=== PATIENT | female | born 1960 | race African-American/Black ===

== ENCOUNTER 2023-03-23 14:24 | Emergency (ER) | payer MEDICAID, OTHER ==
[~2023-03-23] VITALS: Ht 167.6 cm; Wt 84.1 kg
[~2023-03-23 14:24] MED LIST: AMLO-258 PO; LOSA-382 PO
[2023-03-23] MEDS ORDERED: DORZ10DR10 OU (14:41)
[2023-03-23] MEDS ORDERED: ATOR-2 PO (14:41)
[2023-03-23] MEDS ORDERED: ACETAMINOPHEN 500 MG TABLET PO ONE (15:00)
[2023-03-23] MEDS ORDERED: DICLOFENAC SODIUM 1% 100 GM GEL [4GM] TP ONE (16:45)
[2023-03-23] MEDS ORDERED: ACET-3385 PO (17:32)
[2023-03-23 17:34] VITALS: BP 159/84
== END 2023-03-23 17:34 | disposition home or self-care (01) ==
LOC: EMS 14:28
DX: S80.02XA Contusion of left knee, initial encounter (principal); E78.00 Pure hypercholesterolemia, unspecified; I10 Essential (primary) hypertension; Z88.5 Allergy status to narcotic agent; W01.0XXA Fall on same level from slipping, tripping and stumbling without subsequent striking against object, initial encounter; Y93.89 Activity, other specified; Y92.89 Other specified places as the place of occurrence of the external cause; Y99.8 Other external cause status
CPT/HCPCS: 99283

== ENCOUNTER 2024-06-07 12:18 | Emergency (ER) | payer MEDICAID, OTHER ==
[~2024-06-07] VITALS: Ht 165.1 cm; Wt 89.0 kg
[~2024-06-07 12:18] MED LIST changes: +ACET-3385 PO; +ATOR-2 PO; +DORZ10DR10 OU
[2024-06-07 12:36] VITALS: TEMP 97.7
[2024-06-07 16:15] VITALS: BP 155/80; PULSE 70; RESP 16
== END 2024-06-07 16:55 | disposition home or self-care (01) ==
LOC: EMS 12:18
DX: S80.02XA Contusion of left knee, initial encounter (principal); E78.00 Pure hypercholesterolemia, unspecified; I10 Essential (primary) hypertension; Z88.6 Allergy status to analgesic agent; W19.XXXA Unspecified fall, initial encounter; Y93.89 Activity, other specified; Y92.89 Other specified places as the place of occurrence of the external cause; Y99.8 Other external cause status
CPT/HCPCS: 99283